=== PATIENT | female | born 1960 | race Two or more races ===

== ENCOUNTER 2025-01-31 15:12 | Inpatient (IN) | payer OTHER ==
[~2025-01-31] VITALS: Ht 165.1 cm; Wt 56.0 kg
[2025-01-31 15:17] VITALS: O2SAT 100
[2025-01-31 17:19] LABS: BASOPHILS % 0.3 % (0.0-2.0); EOSINOPHILS % 0.5 % (0.0-5.0); HEMATOCRIT. 36.6 % (36.0-48.0); HEMOGLOBIN. 12.1 g/dL (12.0-16.0); LYMPHOCYTES % 11.6 % (20.0-50.0); MEAN PLATELET VOLUME 9.4 fl (7.4-10.4); MONOCYTES % 5.6 % (2.0-8.0); NEUTROPHILS % 82.0 % (40.0-76.0); PLATELET 217 x1000/uL (130-400); RED BLOOD CELL COUNT 4.13 mill/uL (4.2-5.4); RED CELL DISTRIBUTION WIDTH 14.5 % (11.6-14.6)
[2025-01-31 17:39] LABS: CREATININE 0.7 mg/dL (0.6-1.0)
[2025-01-31 17:40] LABS: ASPARTATE AMINOTRANSFERASE 31 IU/L (<34); ETHANOL BLOOD < 10 mg/dL (<10); INR 1.0; PROTEIN TOTAL 7.4 g/dL (6.0-8.3); TROPONIN I HIGH SENSITIVITY < 4 ng/L (3.0-34); UREA NITROGEN BLOOD 19 mg/dL (9-23)
[2025-01-31 17:40] LABS: CLARITY URINE CLEAR (CLEAR); COLOR URINE YELLOW (YELLOW); GLUCOSE URINE NEGATIVE (NEGATIVE); KETONES URINE NEGATIVE (NEGATIVE); LEUKOCYTE ESTERASE URINE NEGATIVE (NEGATIVE); NITRITE URINE NEGATIVE (NEGATIVE); OCCULT BLOOD URINE NEGATIVE (NEGATIVE); PH URINE 7.5 (4.5-8.0); PROTEIN URINE NEGATIVE (NEGATIVE); SPECIFIC GRAVITY URINE 1.018 (1.005-1.030); UROBILINOGEN URINE 0.2 E.U./dL (0.2-1.0)
[2025-01-31 17:42] LABS: BILIRUBIN DIRECT < 0.1 mg/dL (<=3.0); BILIRUBIN TOTAL 0.4 mg/dL (0.1-1.0)
[2025-01-31 17:49] LABS: *AMPHETAMINES SCREEN URINE NEGATIVE (NEGATIVE); *BARBITURATES SCREEN URINE NEGATIVE (NEGATIVE); *BENZODIAZEPINES SCREEN URINE NEGATIVE (NEGATIVE); *COCAINE SCREEN URINE NEGATIVE (NEGATIVE); CANNABINOID URINE SCREEN NEGATIVE (NEGATIVE); ECSTASY MDMA SCREEN URINE NEGATIVE (NEGATIVE); METHADONE URINE SCREEN NEGATIVE (NEGATIVE); OPIATES URINE SCREEN NEGATIVE (NEGATIVE); PHENCYCLIDINE URINE SCREEN NEGATIVE (NEGATIVE)
[2025-01-31 19:16] VITALS: BP 153/68; PULSE 85; RESP 17; TEMP 36.7; O2SAT 98
[2025-01-31 20:18] VITALS: BP 135/67; PULSE 71; RESP 15; TEMP 36.9; TEMP 36.9184; O2SAT 98
[2025-01-31] MEDS ORDERED: ACETAMINOPHEN 325MG TABLET PO PRN (21:00)
[2025-01-31] MEDS: ATORVASTATIN CALCIUM 40MG TABLET PO SCH (21:50)
[2025-01-31] MEDS ORDERED: IOHEXOL-350 100 ML BOTTLE ONE (23:32)
[2025-02-01] VITALS: BP 115/55; PULSE 64; RESP 17; TEMP 36.8; O2SAT 100
[2025-02-01 04:00] VITALS: BP 129/64; PULSE 59; RESP 17; TEMP 36.8; O2SAT 97
[2025-02-01] MEDS: PANTOPRAZOLE 40MG DR TABLET PO SCH (06:10)
[2025-02-01 06:21] LABS: BASOPHILS % 0.4 % (0.0-2.0); EOSINOPHILS % 2.7 % (0.0-5.0); HEMATOCRIT. 42.0 % (36.0-48.0); HEMOGLOBIN. 13.9 g/dL (12.0-16.0); LYMPHOCYTES % 24.7 % (20.0-50.0); MEAN PLATELET VOLUME 10.0 fl (7.4-10.4); MONOCYTES % 8.7 % (2.0-8.0); NEUTROPHILS % 63.5 % (40.0-76.0); PLATELET 236 x1000/uL (130-400); RED BLOOD CELL COUNT 4.75 mill/uL (4.2-5.4); RED CELL DISTRIBUTION WIDTH 14.8 % (11.6-14.6)
[2025-02-01 07:22] LABS: CREATININE 0.7 mg/dL (0.6-1.0)
[2025-02-01 07:23] LABS: LDL CHOLESTEROL 135 mg/dL (5-100); TRIGLYCERIDE 80 mg/dL (0-150); UREA NITROGEN BLOOD 12 mg/dL (9-23)
[2025-02-01 08:00] VITALS: BP 130/62; PULSE 67; RESP 18; TEMP 36.8; O2SAT 99
[2025-02-01] MEDS: ASPIRIN 81MG TABLET PO SCH (08:45)
[2025-02-01] MEDS: ENOXAPARIN 40MG/0.4ML SYR SUBCUT SCH (08:45)
[2025-02-01 12:00] VITALS: BP 125/73; PULSE 67; RESP 18; TEMP 36.7; O2SAT 99
[2025-02-01] MEDS ORDERED: CLOPIDOGREL 75MG TABLET PO NR (12:15)
[2025-02-01] MEDS: CLOPIDOGREL 75MG TABLET PO NR (15:04)
[2025-02-01 16:00] VITALS: BP 118/58; PULSE 67; RESP 16; TEMP 36.9; O2SAT 98
[2025-02-01] MEDS ORDERED: LIP40 MT (16:25)
[2025-02-01] MEDS ORDERED: ASPI-1406 MT (16:25)
[2025-02-01 17:06] VITALS: BP 118/58; PULSE 67; RESP 16; TEMP 98.4
[2025-02-01] MEDS ORDERED: ATORVASTATIN CALCIUM 40MG TABLET PO SCH (21:00)
== END 2025-02-01 18:25 | disposition home or self-care (01) | DRG 69 ==
LOC: ER 15:12 → EDBEDREQTM 17:05 → EDBEDREQ 17:05 → 3WST 19:19
PROVIDERS: ADMIT Internal Medicine; ATTEND Internal Medicine
DX: G45.9 Transient cerebral ischemic attack, unspecified (principal); M25.512 Pain in left shoulder; R07.89 Other chest pain; Z79.899 Other long term (current) drug therapy
CPT/HCPCS: 36415; 70496; 70498; 70551; 71045; 80048; 80061; 80076; 80305; 80320; 81003; 84443; 84484; 85025; 86850; 86900; 93005; 99291; A4606; J1650; Q9967; G0480